=== PATIENT | female | born 1945 | race Caucasian/White ===

== ENCOUNTER → 2017-06-25 | Outpatient (CLI) | payer OTHER ==
[~2017-06-25] MED LIST: AMARYL4 MG PO; APAP500; ASPIRIN325 PO; ATORVASTATIN CA40 MG PO; ATORVASTATIN CA80 MG PO; AZITHROMYCIN 2250 MG PO; BENZONATATE200 MG PO; CEFDINIR300 MG PO; CIPROFLOXIN HC2.5 M1 OPHTHALMIC; CRESTOR40 MG PO; CYMBALTA20 MG PO; DEXAMETHASONE 0.5 M1 OPHTHALMIC; FISH OIL 1,2001 EAC3 PO; GABAPENTIN 100100 MG PO; GLUCOPHAGE1000 MG PO; HYDROCODON-ACE1 EAC7 PO; HYDROCODONE-AP1 EAC6 PO; IBUPROFEN 800800 M1 PO; JANUVIA50 MG PO; LIDOCAINE1 EACH TRANSDERM; LIPITOR80 MG PO; LOSARTAN-HCTZ1 EAC1 PO; LUBRICANT EYE D15 ML OPHTHALMIC; MAGOX 400400 MG PO; MEDROL4 MG PO; MOBIC7.5 M1 PO; MUCINEX600 MG PO; NEXIUM40 MG PO; PRILOSEC 10MG C10 M1 PO; SYNTHROID125 MC1 PO; TRAMADOL 50 MG50 MG PO; VENTOLIN HFA INH8 GM INH; VITAMIN E400 UNI6 PO; VITAMIN E400 UNIT PO; ZOFRAN4 MG PO; ZPAK PO; [UNRECOGNIZED DRUG - OTHER] OPHTHALMIC
== END ==
LOC: M.RAD 11:26
DX: R06.00 Dyspnea, unspecified (principal); R05 Cough

== ENCOUNTER 2018-01-25 22:37 | Observation (INO) | payer OTHER ==
[~2018-01-25] VITALS: Ht 162.6 cm; Wt 75.3 kg
[~2018-01-25 22:37] MED LIST changes: -ATORVASTATIN CA80 MG PO; -AZITHROMYCIN 2250 MG PO; -CEFDINIR300 MG PO; -MUCINEX600 MG PO; -VENTOLIN HFA INH8 GM INH
[2018-01-25 22:43] VITALS: BP 112/58
[2018-01-25] MEDS ORDERED: ATORVASTATIN CA80 MG PO (22:51)
[2018-01-25 23:10] LABS: HEMATOCRIT 37.3 % (37.0-47.0); HEMOGLOBIN 12.2 gm/dL (12.0-15.0); MCH 31.9 pg (26.0-34.0); MCHC 32.6 g/dL (28.0-37.0); MCV 97.7 fL (80.0-100.0); NUCLEATED RBCS 0 /100WBC; PLATELET COUNT* 299 thou/uL (150-400); RBC 3.81 mil/uL (4.20-5.00); RDW-CV 14.6 % (10.5-14.5); WBC 22.1 thou/uL (4.0-11.0)
[2018-01-25 23:21] LABS: ANION GAP 12 mmol/L (7-16); BUN 29 mg/dL (7-18); CALCIUM 9.8 mg/dL (8.5-10.1); CHLORIDE 97 mmol/L (98-107); CO2 23 mmol/L (21-32); CREATININE 1.3 mg/dL (0.6-1.3); GLUCOSE 353 mg/dL (70-99); POTASSIUM 3.9 mmol/L (3.5-5.1); SODIUM 132 mmol/L (136-145)
[2018-01-25 23:24] LABS: INR 1.1; PROTIME 11.1 Seconds (9.20-11.50)
[2018-01-25 23:32] LABS: ALBUMIN 3.3 g/dL (3.4-5.0); ALKALINE PHOSPHATASE 79 U/L (46-116); NT-PRO BRAIN NAT PEPTIDE 186 pg/mL (<300); SGOT 22 U/L (15-37); SGPT 23 U/L (30-65); TOTAL BILIRUBIN 0.3 mg/dL (<0.1-1.0); TOTAL PROTEIN 7.5 g/dL (6.4-8.2); TROPONIN-I LEVEL <0.06 ng/mL (<0.06)
[2018-01-25 23:57] LABS: BE -3.7 mmol/L (-2 to +3); HCO3 21.5 mmol/L (22.0-26.0); PCO2 39.8 mmHg (35.0-45.0); PO2 96.5 mmHg (75.0-100.0); pH 7.351 (7.340-7.450)
[2018-01-26 00:41] LABS: ABSOLUTE EOSINOPHILS 0.4 thou/uL (0.0-0.7); ABSOLUTE LYMPHOCYTES 2.2 thou/uL (0.8-5.3); ABSOLUTE MONOCYTES 1.8 thou/uL (0.0-1.2); ABSOLUTE NEUTROPHILS 17.7 thou/uL (1.6-8.1)
[2018-01-26 00:42] LABS: PLATELET ESTIMATE ADEQUATE; POLYCHROMASIA 1+
[2018-01-26 03:30] VITALS: BP 120/74
[2018-01-26 04:00] VITALS: BP 126/77
[2018-01-26 05:18] LABS: URINE BILIRUBIN NEGATIVE (Negative); URINE BLOOD NEGATIVE (Negative); URINE CLARITY CLEAR; URINE COLOR YELLOW; URINE GLUCOSE-RANDOM NEGATIVE (Negative); URINE KETONES NEGATIVE (Negative); URINE LEUKOCYTES-REFLEX TRACE (Negative); URINE NITRITE-REFLEX NEGATIVE (Negative); URINE PROTEIN NEGATIVE (Negative); URINE SPECIFIC GRAVITY <= 1.005 (1.005-1.030); URINE UROBILINOGEN 0.2 E.U./dl (0.2-1.0)
[2018-01-26 05:28] LABS: SQUAMOUS 0-3 Few /LPF (0-3)
[2018-01-26 05:29] LABS: BACTERIA-REFLEX 1-9 Few /HPF (None Seen); CASTS None Seen /LPF (None Seen); CRYSTALS None Seen /LPF (None Seen); MUCUS 0-3 Light strn/LPF (None Seen); URINE WBC-REFLEX 0-5 Rare /HPF (0-5)
[2018-01-26 05:30] LABS: URINE RBC 0-2 Rare /HPF (0-2)
[2018-01-26 07:49] LABS: CALCIUM 8.6 mg/dL (8.5-10.1); CREATININE 1.1 mg/dL (0.6-1.3); MAGNESIUM 1.1 mg/dL (1.8-2.4); POTASSIUM 4.1 mmol/L (3.5-5.1)
[2018-01-26] MEDS ORDERED: MUCINEX600 MG PO (07:49)
[2018-01-26] MEDS ORDERED: AZITHROMYCIN 2250 MG PO (07:49)
[2018-01-26] MEDS ORDERED: CEFDINIR300 MG PO (07:49)
[2018-01-26] MEDS ORDERED: VENTOLIN HFA INH8 GM INH (07:49)
[2018-01-26 07:56] VITALS: BP 130/75
[2018-01-26] MEDS ORDERED: ASPIRIN325 PO (10:51)
[2018-01-26 11:08] VITALS: BP 130/75
--- NOTE | 2018-01-26 18:13 | EKG ---
[place] [address] ELECTROCARDIOGRAM REPORT Name: SHIRA CARTER Room: [address]#: [id number] Admission: 01/26/18 Attend Phys: Emma Guallpa MD Discharge: 01/26/18 Date of : 41 Report #: [id number] THIS REPORT FOR: //name// [facility] ED Test Date: 2018-01-25 Test Time: 23:02:37 Pat Name: SHIRA CARTER Department: Room: [facility] Gender: F Scanning Clerk: Livan BA : 1945 Requested By: Ethel Rhoades Order Number: [id number] MD: Jim Travis Measurements Intervals [place] Rate: 118 P: 26 MS: 167 QRS: 6 QRSD: 102 T: 52 QT: 323 QTc: 453 Interpretive Statements Sinus tachycardia Consider anterior infarct Compared to ECG 02/17/2015 15:41:27 Myocardial infarct finding now present Sinus rhythm no longer present Left ventricular hypertrophy no longer present ST (T wave) deviation no longer present Electronically Signed On 01-26-2018 18:13:29 CDT by Jim Travis [email or web address] <ELECTRONICALLY SIGNED> By: Jim Travis MD, FACC 01/26/18 1813 01 01 Jim Travis MD, FACC /EPI
--- NOTE | 2018-01-27 11:23 | CON ---
[address] [address] CONSULTATION Name: SHIRA CARTER Room: [address] Molly Santoro#: [id number] Admission: 01/26/18 Attend Phys: Emma Guallpa MD Discharge: 01/26/18 Date of : 41 Report #: [id number] THIS REPORT FOR: //name// CC: Master Dodge DO DATE OF SERVICE: 01/26/2018 REQUESTING PHYSICIAN: Master Starkey MD. REASON FOR CONSULTATION: Cough, shortness of breath, pulmonary fibrosis. DISCUSSION: The patient is a very pleasant 72-year-old woman who has a history of underlying interstitial fibrosis. I do follow her in the office. She is not on any regular medications for this. She intermittently will have a cough. Besides her fibrosis, she has known severe reflux and LPR. When she does catch a cold or develop bronchitis, she will have a severe cough. She typically has been able to report this in the past if she uses some zinc supplements. However, recently, she did develop a "cold" and developed some congestion. Her symptoms persisted. She did see the nurse practitioner in Dr. Dodge's office. Was started on antibiotics as well as a Medrol pack. She had such a severe coughing paroxysm yesterday evening, that her friend brought her to the Emergency Room. When she was evaluated there, she was started on oxygen. Chest x-ray revealed fibrotic changes. However, they also did not do a comparison with her prior studies here. Was also noted to have mild elevation in her lactic acid levels. No chest pain. She is not aware of any fevers at home. She was admitted. Was started on antibiotics. A CT scan has been requested. The time I saw her this morning, she was feeling quite good. In fact, she is asking to be discharged home. She was taken off oxygen while I was seeing her and her O2 saturations were in the mid 90s. She is a former smoker, quitting back in 2004. She has approximate 97-binm-etds smoking history. As noted, I do see her in the office periodically with her last visit back in 09/2017. She is not on any regular treatment for her fibrosis. Her imaging studies, spirometry/PFTs have been stable. Had also offered to refer her for another opinion at [facility] in the past, but she had declined. She is not on any oxygen at home. Typically has been doing well without any issues with shortness of breath. Typically, she does not have any cough. Her last spirometry was 2015. At that time, her FEV1 was 1.72, which was 80% [place] [address] CONSULTATION Name: SHIRA CARTER Carleen Room: [address] Molly Santoro#: [id number] Admission: 01/26/18 Attend Phys: Emma Guallpa MD Discharge: 01/26/18 Date of : 41 Report #: [id number] predicted. Her FVC was 2 liters, which was 71% of predicted. Those findings were stable to actually improve relative to prior PFTs done on her in the past. PAST MEDICAL HISTORY: Besides the interstitial fibrosis is remarkable for diabetes mellitus type 2, coronary artery disease, has had stents placed in the past. She does see Dr. Eva Edmondson about once a year. Things have been stable in that regard. She has severe GERD as noted. She has had her upper airway evaluated by ENT in the past. Also, dyslipidemia, obesity, she has had back surgery ([facility] 2012), lumpectomy, bladder surgery, foot surgery in the past. SOCIAL HISTORY: She is a . Lost her not quite 2 years ago. Has a small dog at home. She is retired. REVIEW OF SYSTEMS: A 12-point ROS was done. Note positives above. Initially after her had , she did lose a substantial amount of weight. That has stabilized and she has actually gained 10 pounds compared to the visit with me last summer. As long as she takes her PPI, she typically does not have much in the way of indigestion or heartburn. Still occasionally has to use some Tums or other medications. Sometimes, the symptoms are worse when she is coughing more as well. No recent true vomiting, but did have some "dry heaves." Denies any diarrhea. She has not been around anyone who has been ill that she is aware of. She has had her flu shot. I believe she has had her pneumonia vaccines in the past as well. No issues with lower extremity edema. No palpitations. No chest pain. FAMILY HISTORY: Positive for heart disease. Negative for lung disease. PHYSICAL EXAMINATION: GENERAL: She is seen in a room. Was taken off the oxygen, O2 saturations in the mid 90s. She had no cough during my interview nor examination with her. She is alert, cooperative. She is in no acute distress. Able to speak in full sentences. HEENT: Head is normocephalic. Sclerae nonicteric. Mucous membranes look moist. NECK: Negative for adenopathy. No JVD is noted. HEART: Regular rate. No murmur or gallop is heard. LUNGS: Reveal bibasilar crackles. No wheezing. No dullness to percussion. No E to A changes. No CVA tenderness. She has no clubbing. ABDOMEN: Soft. LOWER EXTREMITIES: Negative for any significant edema. NEUROLOGIC: She is alert and oriented x 3. LABORATORY AND X-RAY FINDINGS: Chest x-ray shows heart size to be normal. Prominence of interstitial markings are noted. When compared to a study done this past spring, it looks similar to actually slightly improved. She has had a CT chest done without contrast just after I did see her this morning. It shows [address], [place] [address] CONSULTATION Name: SANTOSSHIRA TREJO Room: [address] M.R.#: [id number] Admission: 01/26/18 Attend Phys: Emma Guallpa MD Discharge: 01/26/18 Date of : 41 Report #: [id number] fibrotic changes. There are no masses. No pleural effusions. Sodium was 135, BUN 24, creatinine of 1.1. Did have initial lactate level of 5.3, dropped to 4.7. White count was 22,100, hemoglobin 12.2, hematocrit 37.3, platelets 299,000. UA was generally unremarkable. Arterial blood gases done on 3 liters, she had a pH of 7.35, pCO2 of 40, pO2 of 97, bicarbonate of 22 with a saturation of 96%. Blood cultures were sent, those results are negative to date. IMPRESSION: 1. Upper respiratory infection/lower respiratory tract infection. No confluent infiltrates noted. Clinically, has improved. 2. Severe cough. This has been longstanding intermittent issue for her. She typically will have increased cough with an infection. May be exacerbated by her gastroesophageal reflux disease as well. 3. Pulmonary fibrosis. Findings on her chest x-ray appears stable. Since her prior CT chest have not been done here, it is difficult to know if there has been additional progression based on her current CT. 4. Coronary artery disease. Status post stent placement. 5. Leukocytosis, may be from steroids given her recently. RECOMMENDATIONS: 1. She actually looks quite good. I am comfortable with her being discharged home today. She does have access to a nebulizer at home. She notes in the past, she actually had increased cough with that. However, she did not try at this time when she had her increased cough. It has worked well for her here in the hospital, since it is same medication, I suggested she resume use of that at home. 2. Continue with her steroid taper and complete a course of antibiotics. 3. We will have my office make arrangements for her to have follow up PFTs done a little bit later this year. We would like her over this acute event first. <ELECTRONICALLY SIGNED> By: Modesta Henriquez MD 01/27/18 1123 1018 20Modesta Henriquez MD /nt
== END 2018-01-26 12:10 | disposition home or self-care (01) ==
LOC: M.ERS 22:37 → M.TBA-ER 01-26 01:58 → M.ICU 01-26 01:58
PROVIDERS: Emergency Medicine; Internal Medicine; ADMIT Internal Medicine
DX: J96.01 Acute respiratory failure with hypoxia (principal); J84.9 Interstitial pulmonary disease, unspecified; E87.2 Acidosis; F15.90 Other stimulant use, unspecified, uncomplicated; E09.65 Drug or chemical induced diabetes mellitus with hyperglycemia; T38.0X5A Adverse effect of glucocorticoids and synthetic analogues, initial encounter; J20.9 Acute bronchitis, unspecified; J06.9 Acute upper respiratory infection, unspecified; R65.10 Systemic inflammatory response syndrome (SIRS) of non-infectious origin without acute organ dysfunction; I25.10 Atherosclerotic heart disease of native coronary artery without angina pectoris; I25.2 Old myocardial infarction; F32.9 Major depressive disorder, single episode, unspecified; K21.9 Gastro-esophageal reflux disease without esophagitis; J84.10 Pulmonary fibrosis, unspecified; E78.5 Hyperlipidemia, unspecified; D72.829 Elevated white blood cell count, unspecified; F17.210 Nicotine dependence, cigarettes, uncomplicated; Z79.82 Long term (current) use of aspirin; Z95.5 Presence of coronary angioplasty implant and graft; Z98.890 Other specified postprocedural states; Y92.89 Other specified places as the place of occurrence of the external cause; Z79.899 Other long term (current) drug therapy

== ENCOUNTER → 2018-03-11 | Outpatient (CLI) | payer OTHER ==
[~2018-03-11] MED LIST changes: +ATORVASTATIN CA80 MG PO; +AZITHROMYCIN 2250 MG PO; +CEFDINIR300 MG PO; +MUCINEX600 MG PO; +VENTOLIN HFA INH8 GM INH
== END ==
LOC: M.RAD 10:20
DX: Z12.31 Encounter for screening mammogram for malignant neoplasm of breast (principal)

== ENCOUNTER → 2018-08-30 | Outpatient (CLI) | payer OTHER | LOC: M.RAD 14:23 | DX: M25.552 Pain in left hip (principal) ==

== ENCOUNTER → 2019-03-07 | Outpatient (CLI) | payer OTHER | LOC: M.RAD 12:55 | DX: Z12.31 Encounter for screening mammogram for malignant neoplasm of breast (principal); R91.8 Other nonspecific abnormal finding of lung field; R09.89 Other specified symptoms and signs involving the circulatory and respiratory systems; I51.7 Cardiomegaly ==

== ENCOUNTER → 2019-06-08 | Outpatient (CLI) | payer OTHER | LOC: M.CT 13:22 | DX: J84.10 Pulmonary fibrosis, unspecified (principal); R91.8 Other nonspecific abnormal finding of lung field; J47.9 Bronchiectasis, uncomplicated ==

== ENCOUNTER 2019-08-29 11:40 | Inpatient (IN) | payer OTHER ==
[~2019-08-29] VITALS: Ht 162.6 cm; Wt 67.8 kg
[2019-08-29 11:46] VITALS: BP 151/95
[2019-08-29 12:11] LABS: ABSOLUTE BASOPHILS 0.1 thou/uL (0.0-0.2); ABSOLUTE EOSINOPHILS 0.9 thou/uL (0.0-0.7); ABSOLUTE LYMPHOCYTES 1.5 thou/uL (0.8-5.3); ABSOLUTE MONOCYTES 0.9 thou/uL (0.0-1.2); ABSOLUTE NEUTROPHILS 7.5 thou/uL (1.6-8.1); BASOPHILS 0.8 %; EOSINOPHILS 8.4 %; HEMATOCRIT 36.3 % (37.0-47.0); HEMOGLOBIN 12.1 gm/dL (12.0-15.0); LYMPHOCYTES 14.1 %; MCH 31.4 pg (26.0-34.0); MCHC 33.4 g/dL (28.0-37.0); MONOCYTES 8.1 %; MPV 7.9 fl. (7.2-11.1); NUCLEATED RBCS 0 /100WBC; PLATELET COUNT* 293 thou/uL (150-400); POLYS 68.6 %; RBC 3.87 mil/uL (4.20-5.00); RDW-CV 14.9 % (10.5-14.5)
[2019-08-29 12:32] LABS: BE 0.6 mmol/L (-2 to +3); PCO2 42.6 mmHg (35.0-45.0); PO2 78.8 mmHg (75.0-100.0); pH 7.397 (7.340-7.450)
[2019-08-29 12:41] LABS: CALCIUM 9.5 mg/dL (8.5-10.1); CREATININE 0.9 mg/dL (0.6-1.3); POTASSIUM 4.2 mmol/L (3.5-5.1)
[2019-08-29 12:46] LABS: ALBUMIN 3.8 g/dL (3.4-5.0); TOTAL BILIRUBIN 0.5 mg/dL (<0.1-1.0); TOTAL PROTEIN 8.5 g/dL (6.4-8.2)
[2019-08-29 13:03] LABS: APTT 27.8 Seconds (25.0-31.3); PROTIME 10.7 Seconds (9.20-11.50)
[2019-08-29 18:19] VITALS: BP 147/95
[2019-08-29 20:00] VITALS: BP 132/80
[2019-08-30 00:02] VITALS: BP 140/74
[2019-08-30 04:41] VITALS: BP 134/82
[2019-08-30 06:10] LABS: HEMATOCRIT 34.3 % (37.0-47.0); HEMOGLOBIN 11.7 gm/dL (12.0-15.0); MCHC 34.1 g/dL (28.0-37.0); MCV 93.9 fL (80.0-100.0); MPV 7.9 fl. (7.2-11.1); RBC 3.65 mil/uL (4.20-5.00); RDW-CV 14.7 % (10.5-14.5); WBC 8.7 thou/uL (4.0-11.0)
[2019-08-30 06:20] LABS: CALCIUM 9.3 mg/dL (8.5-10.1); MAGNESIUM 1.4 mg/dL (1.8-2.4); POTASSIUM 4.4 mmol/L (3.5-5.1)
[2019-08-30 07:53] VITALS: BP 126/87
[2019-08-30 11:30] VITALS: BP 123/74
--- NOTE | 2019-08-30 13:28 | EKG ---
[place] [address] ELECTROCARDIOGRAM REPORT Name: SHIRA CARTER Room: [address] ADM IN [facility]#: [id number] Admission: 08/29/19 Attend Phys: Master Starkey, Discharge: Date of : 41 Date of Service: 08/29/19 1210 Report #: [id number] THIS REPORT FOR: //name// [facility] ED Test Date: 2019-08-29 Test Time: 12:10:25 Pat Name: SHIRA CARTER Department: Room: [facility] Gender: F Cop: MS : 1945 Requested By: Huang Kirby Order Number: [id number] MD: David Cross Measurements Intervals [place] Rate: 91 P: 19 RI: 166 QRS: -63 QRSD: 80 T: 12 QT: 443 QTc: 546 Interpretive Statements Sinus rhythm left anterior fasicular block Probable left atrial enlargement Prolonged QT interval Baseline wander in lead(s) I,II,aVR,V2 Compared to ECG 01/25/2018 23:02:37 Prolonged QT interval now present Sinus tachycardia no longer present Myocardial infarct finding still present Electronically Signed On 08-30-2019 13:26:15 CDT by David Cross [email or web address] <ELECTRONICALLY SIGNED> By: David Cross MD, [facility] 08/30/19 1326 1210 1210 aDvid Cross MD, [facility] /EPI
[2019-08-30 16:00] VITALS: BP 123/81
--- NOTE | 2019-08-30 16:03 | 2DMMODE ---
[place] [address] 2 D/M-MODE ECHOCARDIOGRAM Name: SHIRA CARTER Carleen Room: [address] IN [facility]#: [id number] Admission: 08/29/19 Attend Phys: Master Starkey, Discharge: Date of : 41 Date of Service: 08/30/19 1601 Report #: [id number] THIS REPORT FOR: cc: Yonny Dodge Russell J. DO Liston, Michael J. MD [facility] ~ APPROVED REPORT Study performed: 08/30/2019 13:32:15 EXAM: Comprehensive 2D, Doppler, and color-flow Echocardiogram Patient Location: In-Patient BSA: 1.70 HR: 70 bpm BP: 126/87 mmHg Other Information Study Quality: Fair Indications COPD Dyspnea 2D Dimensions IVSd: 11.44 (7-11mm) LVOT Diam: 21.18 (18-24mm) LVDd: 42.30 mm PWd: 9.75 (7-11mm) Ascending Ao: 28.42 (22-36mm) LVDs: 30.27 (25-40mm) Aortic Root: 28.33 mm Volumes Left Atrial Volume (Systole) LA ESV Index: 15.10 mL/m2 Aortic Valve AoV Peak Duncan.: 1.44 m/s AO Peak Gr.: 8.32 mmHg LVOT Max P.57 mmHg AO Mean Gr.: 4.77 mmHg LVOT Mean P.93 mmHg LVOT Max V: 0.94 m/s AO V2 VTI: 22.81 cm LVOT Mean V: 0.65 m/s LILLIAN (VTI): 2.54 cm2 LVOT V1 VTI: 16.41 [place] [address] 2 D/M-MODE ECHOCARDIOGRAM Name: SHIRA CARTER Room: [address] IN [facility]#: [id number] Admission: 08/29/19 Attend Phys: Master Starkey, Discharge: Date of : 41 Date of Service: 08/30/19 1601 Report #: [id number] Mean Gr.: 3.79 mmHg MV Decel. Time: 118.56 ms MV PHT: 34.38 ms MVA (PHT): 6.40 cm2 TDI Medial E' Duncan.: 0.06 m/s Lateral E' Duncan.: 0.06 m/s Pulmonary Valve PV Peak Duncan.: 0.90 m/s PV Peak Gr.: 3.26 mmHg Tricuspid Valve RAP Estimate: 5.00 mmHg TR Peak Gr.: 14.73 mmHg RVSP: 19.73 mmHg PA Pressure: 19.73 mmHg Left Ventricle The left ventricle is normal size. There is normal LV segmental wall motion. There is normal left ventricular wall thickness. The left ventricular systolic function is normal. LVEF is 55-60%. Transmitral Doppler flow pattern suggests impaired LV relaxation. Right Ventricle Right ventricle is moderately dilated. The right ventricular systolic function is normal. Atria The left atrium size is normal. The right atrium size is normal. Aortic Valve The Aortic valve is sclerotic. No aortic regurgitation is present. There is no aortic valvular stenosis. Mitral Valve Mitral valve leaflets are mildly thickened. There is no mitral valve regurgitation noted. No evidence of mitral valve stenosis. Tricuspid Valve The tricuspid valve is normal in structure. Trace tricuspid regurgitation. No apparent pulmonary hypertension. Pulmonic Valve The pulmonary valve is normal in structure. There is no pulmonic [place] [address] 2 D/M-MODE ECHOCARDIOGRAM Name: SHIRA CARTER Carleen Room: [address]#: [id number] Admission: 08/29/19 Attend Phys: Master Starkey, Discharge: Date of : 41 Date of Service: 08/30/19 1601 Report #: [id number] Great Vessels The aortic root is normal in size. IVC is normal in size and collapses >50% with inspiration. Pericardium There is no pericardial effusion. <Conclusion> The left ventricle is normal size. There is normal left ventricular wall thickness. The left ventricular systolic function is normal. LVEF is 55-60%. Transmitral Doppler flow pattern suggests impaired LV relaxation. Right ventricle is moderately dilated. The Aortic valve is sclerotic. There is no aortic valvular stenosis. Mitral valve leaflets are mildly thickened. No evidence of mitral valve stenosis. Trace tricuspid regurgitation. No apparent pulmonary hypertension. IVC is normal in size and collapses >50% with inspiration. <ELECTRONICALLY SIGNED> By: Jim Travis MD, FACC 08/30/19 1601 1601 160 Jim Travis MD, FACC /INF
[2019-08-30 20:00] VITALS: BP 127/71
[2019-08-31] VITALS: BP 122/83
[2019-08-31 04:00] VITALS: BP 118/71; BP 127/51
[2019-08-31 12:27] VITALS: BP 80/59
[2019-08-31 12:40] VITALS: BP 120/72
[2019-08-31 21:00] VITALS: BP 133/64
[2019-09-01 08:00] VITALS: BP 120/90
[2019-09-01 09:09] LABS: ANTI-DNA SCREEN 1 IU/mL (0-9); ANTI-RNP <0.2 AI (0.0-0.9)
[2019-09-01] MEDS ORDERED: PREDNISONE 10 M10 M1 PO (12:04)
[2019-09-01 12:05] VITALS: BP 120/90
--- NOTE | 2019-09-05 17:32 | CON ---
[address] [address] CONSULTATION Name: RAULSHIRA Carleen Room: [address] IN .R.#: [id number] Admission: 08/29/19 Attend Phys: Master Starkey MD Discharge: 09/01/19 Date of : 41 Report #: [id number] THIS REPORT FOR: //name// cc: Yonny Dodge Russell J. DO ~ THIS REPORT FOR: //name// CC: Master Dodge DATE OF SERVICE: 08/30/2019 CONSULT REQUESTED BY: Master Starkey MD INDICATION FOR CONSULTATION: Pulmonary fibrosis. HISTORY OF PRESENT ILLNESS: A 74-year-old female with past medical history includes history of pulmonary fibrosis. By clinical history, the patient also had COPD; however, I do not have any previous pulmonary function test to substantiate this. The patient is on oxygen while asleep. She has previously had cardiac stents placed as well and has gastroesophageal reflux. The patient now reports that overall there has been a decline in her health over the last few months. She says that for the last 2-3 months, she has noticed that she has been coughing more. She, however, does not report any recent change in this hospital. She says that over the last couple of months, there has been a progressive deterioration in her shortness of breath as well. She states that she came to the Emergency Room yesterday due to an increase in shortness of breath. With the exception of having an increase in shortness of breath, the patient does not describe any other new respiratory complaints at this time. She has no sputum production. There is no chest pain. She has had occasional nasal discharge, this is clear and not recently changed. There is no fever. There is no sore throat. She has not had any joint pains or aches. Since admission yesterday, the patient has been treated with Solu-Medrol. She also has received broad-spectrum antibiotics. The patient reports improvement in shortness of breath since yesterday. At her baseline, the patient is on oxygen while asleep. She did require oxygen while awake as well on admission. O2 saturations as low as 74% on room air initially recorded. The patient at this time is reported to be maintaining her O2 saturation up to 100% at rest with room air while awake. The patient, however, is reported to be quickly desaturating with minor exertion or when talking and therefore still remains on oxygen at 3 liters while awake. The patient in the past has had fairly significant heartburn, which is under control at this time. She has occasional joint pains, [place] [address] CONSULTATION Name: SHIRA CARTER Room: [address] IN .R.#: [id number] Admission: 08/29/19 Attend Phys: Master Starkey MD Discharge: 09/01/19 Date of : 41 Report #: [id number] She answers to the negative for 12 questions for review of systems except as mentioned above. PAST MEDICAL HISTORY: Interstitial lung disease/pulmonary fibrosis which is verified by CAT scans in the past. I do not have any additional workup available. Chronic hypoxemic respiratory failure secondary to pulmonary fibrosis. The patient is on 2 liters oxygen while asleep. She is previously not known to be on oxygen during the day. COPD by clinical history, I do not have previous PFTs available. Coronary artery disease, the patient has had stents placed in the past, severe gastroesophageal reflux disease. In the past at one point, the patient had obesity, hyperlipidemia, back surgery, lumpectomy, bladder surgery, foot surgery. SOCIAL HISTORY: There is as an extensive history of smoking up to 2 packs a day for several decades, discontinued in 2004 or 2005. No known history of heavy alcohol use or illegal drug use. CURRENT MEDICATIONS: List in [facility] reviewed. HOME MEDICATIONS: List also in [facility] reviewed. FAMILY HISTORY: Heart disease. PHYSICAL EXAMINATION: GENERAL: Alert, awake and oriented, does not appear to be in any distress at this time. VITAL SIGNS: Pulse of 96 and a blood pressure 123/74. She is afebrile with a temperature of 36.7 and has remained afebrile since admission. Her respiratory rate is around 16-17. She does not appear to be in any distress. The patient is maintaining O2 saturations up to 100% on room air at rest, however, she remains on 3.5 liters oxygen at this time on account of the fact that she is desaturating on room air on minor exertion and also on talking. Her body mass index is now 24.8. HEENT: Head is normocephalic and atraumatic. Pupils are equal and reactive. There is no throat erythema. There is no thrush in her throat. NECK: Does not show raised JVP, asymmetry, mass or lymph nodes. CHEST: Symmetrical expansion on inspection and palpation. On auscultation, breath sounds are bilaterally equal. There are occasional rales at the right lung base. I do not hear any other added sounds. HEART: Regular. There is no murmur. ABDOMEN: Soft and nontender. EXTREMITIES: Lower extremities show no edema, no calf tenderness. SKIN: Dry and intact. NEUROLOGICAL: She moves all extremities bilaterally equally and spontaneously with [place] [address] CONSULTATION Name: RAULSHIRA Carleen Room: [address] IN .R.#: [id number] Admission: 08/29/19 Attend Phys: Master Starkey MD Discharge: 09/01/19 Date of : 41 Report #: [id number] LABORATORY DATA: The patient's lab work including a CBC repeated twice as well as chemistries in [facility] and these are reviewed. Coagulation studies also in [facility] reviewed. Arterial blood gas in [facility] and it is also reviewed. ASSESSMENT AND PLAN: 1. Rtowm-ip-biokswk hypoxemic respiratory failure. The patient needs oxygen while asleep. There has been a gradual deterioration in her respiratory status, so only significant new complaint is an increase in shortness of breath. It is possible that this is acute recognition of a chronically deteriorating issue. The patient would need reevaluation of her long-term oxygen needs prior to discharge. 2. Interstitial lung disease/pulmonary fibrosis. This is documented by her CT previously. I just had a CT repeated now as well. On my review, there are no new findings. However, the radiologist's detailed review is pending. There is honeycombing and at first glance, it appears to me that the pattern resembles the usual interstitial pneumonitis. However, the etiology of the patient's interstitial lung disease does need to be evaluated further. Considering that she has also had severe gastroesophageal reflux disease, I have sent off connective tissue markers and I feel that an underlying connective tissue disease leading to this picture needs to be ruled out. The patient may also benefit from a pulmonary function test and if no underlying connective tissue disease is recognized then the primary therapy for this patient, should she be interested, may be the fibroblastic inhibitor as an outpatient. 3. Chronic obstructive pulmonary disease exacerbation. It does appear to me that the patient has underlying chronic obstructive pulmonary disease. Obviously, this needs to be verified by pulmonary function test. She received 2 doses of Solu-Medrol and is now on prednisone as well as p.r.n. nebulized bronchodilators. I ordered an additional dose of Solu-Medrol for this evening. I also changed the nebulized bronchodilators to scheduled. The patient states that in the past, she has had problems with various nebulizers as well as inhalers and therefore she has not used any that she was prescribed regularly. We will see how she does with the nebulizers ordered now again. 4. Coronary artery disease. I have ordered an echocardiogram, primarily to look at the right heart pressures. The report is in [facility] and reviewed the same. The right heart pressures are reported to be normal with a left ventricular ejection fraction of 55%-60%. 5. Severe gastroesophageal reflux disease. The patient remains on a proton pump inhibitor b.i.d. 6. Acute bronchitis/possibility of pneumonia. As mentioned above, I do not see any definite change in the patient's CT compared with the previous CT; however, evaluation is limited due to the presence of significant chronic changes. Pending further review, I feel that it is reasonable for now to continue with broad-spectrum antibiotics. [address] [address] CONSULTATION Name: SHIRA CARTER Room: [address] IN M.R.#: [id number] Admission: 08/29/19 Attend Phys: Master Starkey MD Discharge: 09/01/19 Date of : 41 Report #: [id number] Thanks for this consultation. <ELECTRONICALLY SIGNED> By: Tarun Schmitz MD 09/05/19 1732 1732 [id number] Schmitz MD /nt
== END 2019-09-01 13:22 | disposition home or self-care (01) | DRG 871 ==
LOC: M.ERS 11:40 → M.TBA-ER 14:35 → M.2W 14:35
PROVIDERS: Family Medicine; Internal Medicine Critical Care Medicine; ADMIT Internal Medicine; ATTEND Internal Medicine
DX: A41.9 Sepsis, unspecified organism (principal); J18.9 Pneumonia, unspecified organism; J96.21 Acute and chronic respiratory failure with hypoxia; J96.22 Acute and chronic respiratory failure with hypercapnia; J44.1 Chronic obstructive pulmonary disease with (acute) exacerbation; J44.0 Chronic obstructive pulmonary disease with (acute) lower respiratory infection; I25.10 Atherosclerotic heart disease of native coronary artery without angina pectoris; J20.9 Acute bronchitis, unspecified; K21.9 Gastro-esophageal reflux disease without esophagitis; F32.9 Major depressive disorder, single episode, unspecified; J84.10 Pulmonary fibrosis, unspecified; Z68.25 Body mass index [BMI] 25.0-25.9, adult; E78.5 Hyperlipidemia, unspecified; E66.9 Obesity, unspecified; E11.65 Type 2 diabetes mellitus with hyperglycemia; G89.29 Other chronic pain; Z95.5 Presence of coronary angioplasty implant and graft; I25.2 Old myocardial infarction; Z86.711 Personal history of pulmonary embolism; Z87.891 Personal history of nicotine dependence; Z82.49 Family history of ischemic heart disease and other diseases of the circulatory system; Z99.81 Dependence on supplemental oxygen

== ENCOUNTER 2019-09-22 12:12 | Observation (INO) | payer OTHER ==
[~2019-09-22] VITALS: Ht 162.6 cm; Wt 67.6 kg
[~2019-09-22 12:12] MED LIST changes: +PREDNISONE 10 M10 M1 PO
[2019-09-22 12:15] VITALS: BP 103/56
[2019-09-22 13:08] LABS: ABSOLUTE EOSINOPHILS 0.2 thou/uL (0.0-0.7); ABSOLUTE LYMPHOCYTES 1.2 thou/uL (0.8-5.3); ABSOLUTE MONOCYTES 0.7 thou/uL (0.0-1.2); ABSOLUTE NEUTROPHILS 4.7 thou/uL (1.6-8.1); BASOPHILS 0.5 %; EOSINOPHILS 3.2 %; HEMATOCRIT 33.5 % (37.0-47.0); HEMOGLOBIN 11.3 gm/dL (12.0-15.0); LYMPHOCYTES 17.2 %; MCH 31.6 pg (26.0-34.0); MCHC 33.7 g/dL (28.0-37.0); MCV 93.9 fL (80.0-100.0); NUCLEATED RBCS 0 /100WBC; PLATELET COUNT* 259 thou/uL (150-400); POLYS 69.1 %; RBC 3.57 mil/uL (4.20-5.00); RDW-CV 15.1 % (10.5-14.5); WBC 6.9 thou/uL (4.0-11.0)
[2019-09-22 13:47] LABS: CALCIUM 8.9 mg/dL (8.5-10.1); CREATININE 1.1 mg/dL (0.6-1.3); POTASSIUM 4.1 mmol/L (3.5-5.1)
[2019-09-22 13:58] LABS: TOTAL BILIRUBIN 0.3 mg/dL (<0.1-1.0)
[2019-09-22 16:16] VITALS: BP 104/64
[2019-09-22 17:02] VITALS: BP 110/68
--- NOTE | 2019-09-22 18:20 | EKG ---
[place] [address] ELECTROCARDIOGRAM REPORT Name: SHIRA CARTER Room: [address]#: [id number] Admission: 09/22/19 Attend Phys: Master Starkey, Discharge: Date of : 41 Date of Service: 09/22/19 1314 Report #: [id number] THIS REPORT FOR: //name// 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 : 1945 Requested By: Tristan Delgado Order Number: [id number] MD: Jim Travis Measurements Intervals [place] Rate: 85 P: 40 MN: 166 QRS: 17 QRSD: 102 T: 33 QT: 372 QTc: 443 Interpretive Statements Sinus rhythm Low voltage, precordial leads Compared to ECG 08/29/2019 12:10:25 Low QRS voltage now present Prolonged QT interval no longer present Electronically Signed On 09-22-2019 18:19:40 CDT by Jim Travis [email or web address] <ELECTRONICALLY SIGNED> By: Jim Travis MD, FAC 09/22/19 1819 1314 1314 Jim Travis MD, [facility] /EPI
[2019-09-22 20:50] VITALS: BP 111/71
[2019-09-23 07:45] VITALS: BP 109/68
[2019-09-23] MEDS ORDERED: NEBULIZER MISCELL (09:05)
[2019-09-23] MEDS ORDERED: AZITHROMYCIN 2250 MG PO (09:05)
[2019-09-23] MEDS ORDERED: CEFDINIR300 MG PO (09:05)
[2019-09-23] MEDS ORDERED: PULMICORT0.5 MG/2 M INH (09:05)
[2019-09-23] MEDS ORDERED: IPRAT-ALBUT 0.5-3 ML INH (09:05)
[2019-09-23] MEDS ORDERED: PREDNISONE 10 M10 MG PO (09:06)
[2019-09-23 11:25] VITALS: BP 109/68
== END 2019-09-23 15:20 | disposition home health service (06) ==
LOC: M.ERS 12:12 → M.ORTHSURG 14:33 → M.TBA-ER 14:33 → M.ORTHSURG 16:49
PROVIDERS: Emergency Medicine Emergency Medical Services; ADMIT Internal Medicine; ATTEND Internal Medicine
DX: J96.21 Acute and chronic respiratory failure with hypoxia (principal); J44.1 Chronic obstructive pulmonary disease with (acute) exacerbation; J18.9 Pneumonia, unspecified organism; E11.9 Type 2 diabetes mellitus without complications; I25.10 Atherosclerotic heart disease of native coronary artery without angina pectoris; I25.2 Old myocardial infarction; K21.9 Gastro-esophageal reflux disease without esophagitis; G89.29 Other chronic pain; Z87.891 Personal history of nicotine dependence; F32.9 Major depressive disorder, single episode, unspecified; J84.10 Pulmonary fibrosis, unspecified

== ENCOUNTER 2019-12-24 18:36 | Emergency (ER) | payer OTHER ==
[~2019-12-24] VITALS: Ht 162.6 cm; Wt 65.3 kg
[~2019-12-24 18:36] MED LIST changes: +IPRAT-ALBUT 0.5-3 ML INH; +NEBULIZER MISCELL; +PREDNISONE 10 M10 MG PO; +PULMICORT0.5 MG/2 M INH
[2019-12-24 18:50] VITALS: BP 99/56
[2019-12-24] MEDS ORDERED: CHOLESTEROL MED (18:55)
[2019-12-24 19:55] LABS: ABSOLUTE BASOPHILS 0.1 thou/uL (0.0-0.2); ABSOLUTE EOSINOPHILS 0.6 thou/uL (0.0-0.7); ABSOLUTE LYMPHOCYTES 1.6 thou/uL (0.8-5.3); ABSOLUTE MONOCYTES 1.2 thou/uL (0.0-1.2); ABSOLUTE NEUTROPHILS 6.9 thou/uL (1.6-8.1); BASOPHILS 0.7 %; EOSINOPHILS 5.9 %; HEMATOCRIT 33.8 % (37.0-47.0); HEMOGLOBIN 11.3 gm/dL (12.0-15.0); LYMPHOCYTES 15.8 %; MCHC 33.5 g/dL (28.0-37.0); MCV 95.5 fL (80.0-100.0); MONOCYTES 11.1 %; MPV 7.7 fl. (7.2-11.1); NUCLEATED RBCS 0 /100WBC; PLATELET COUNT* 324 thou/uL (150-400); POLYS 66.5 %; RBC 3.54 mil/uL (4.20-5.00); RDW-CV 15.5 % (10.5-14.5); WBC 10.4 thou/uL (4.0-11.0)
[2019-12-24 20:02] LABS: CALCIUM 10.3 mg/dL (8.5-10.1); CREATININE 1.2 mg/dL (0.6-1.3); POTASSIUM 3.4 mmol/L (3.5-5.1)
[2019-12-24 20:03] LABS: PROTIME 10.5 Seconds (9.20-11.50)
== END 2019-12-24 21:31 | disposition home or self-care (01) ==
LOC: M.ERS 18:36
PROVIDERS: Personal Emergency Response Attendant
DX: R04.0 Epistaxis (principal); I25.10 Atherosclerotic heart disease of native coronary artery without angina pectoris; E11.9 Type 2 diabetes mellitus without complications; K21.9 Gastro-esophageal reflux disease without esophagitis; G89.29 Other chronic pain; Z95.5 Presence of coronary angioplasty implant and graft; Z88.8 Allergy status to other drugs, medicaments and biological substances

== ENCOUNTER 2020-01-02 09:05 | Inpatient (IN) | payer OTHER ==
[~2020-01-02] VITALS: Ht 162.6 cm; Wt 64.0 kg
--- NOTE | ~2020-01-02 | PROC ---
[address] [address] PROCEDURE REPORT Name: SHIRA CARTER Room: [address] IN M.R.#: [id number] Admission: 01/03/20 Attend Phys: Emma Guallpa MD Discharge: 01/05/20 Date of : 41 Report #: [id number] THIS REPORT FOR: //name// cc: Yonny Dodge Russell J. DO ~ THIS REPORT FOR: //name// For GI report, please see the Provation report in Per[employer] 7 content. By: [id number] Records Staff JESSI /LUIS FERNANDO
[~2020-01-02 09:05] MED LIST changes: +CHOLESTEROL MED
[2020-01-02 09:09] VITALS: BP 165/89
[2020-01-02] MEDS ORDERED: NEXIUM40 M2 PO (09:16)
[2020-01-02] MEDS ORDERED: LIPITOR80 MG PO (09:17)
[2020-01-02 09:46] LABS: ABSOLUTE BASOPHILS 0.1 thou/uL (0.0-0.2); ABSOLUTE EOSINOPHILS 0.6 thou/uL (0.0-0.7); ABSOLUTE LYMPHOCYTES 1.5 thou/uL (0.8-5.3); ABSOLUTE MONOCYTES 0.8 thou/uL (0.0-1.2); ABSOLUTE NEUTROPHILS 6.6 thou/uL (1.6-8.1); BASOPHILS 0.5 %; EOSINOPHILS 6.4 %; HEMATOCRIT 32.3 % (37.0-47.0); HEMOGLOBIN 10.8 gm/dL (12.0-15.0); LYMPHOCYTES 15.5 %; MCH 31.9 pg (26.0-34.0); MCHC 33.4 g/dL (28.0-37.0); MCV 95.7 fL (80.0-100.0); MONOCYTES 8.5 %; MPV 7.7 fl. (7.2-11.1); NUCLEATED RBCS 0 /100WBC; PLATELET COUNT* 302 thou/uL (150-400); POLYS 69.1 %; RBC 3.37 mil/uL (4.20-5.00); RDW-CV 15.4 % (10.5-14.5); WBC 9.6 thou/uL (4.0-11.0)
[2020-01-02 09:53] LABS: CALCIUM 10.7 mg/dL (8.5-10.1); CREATININE 1.2 mg/dL (0.6-1.3); POTASSIUM 3.8 mmol/L (3.5-5.1)
[2020-01-02 09:57] LABS: ALBUMIN 3.6 g/dL (3.4-5.0); TOTAL BILIRUBIN 0.3 mg/dL (<0.1-1.0); TOTAL PROTEIN 7.5 g/dL (6.4-8.2)
[2020-01-02 10:23] LABS: URINE BLOOD NEGATIVE (Negative); URINE CLARITY CLEAR; URINE COLOR YELLOW; URINE GLUCOSE-RANDOM NEGATIVE (Negative); URINE KETONES NEGATIVE (Negative); URINE LEUKOCYTES-REFLEX NEGATIVE (Negative); URINE NITRITE-REFLEX NEGATIVE (Negative); URINE PROTEIN NEGATIVE (Negative); URINE UROBILINOGEN 0.2 E.U./dl (0.2-1.0)
[2020-01-02 10:24] LABS: ICTOTEST (BILI CONFIRMATORY) Negative (Negative); URINE BILIRUBIN 1+ (Negative)
[2020-01-02 14:27] VITALS: BP 152/95
[2020-01-02 14:37] VITALS: BP 138/77
[2020-01-02] MEDS ORDERED: CHILDREN'S ASPI81 M1 PO (15:44)
[2020-01-02] MEDS ORDERED: NORCO 10-325 T1 EACH PO (18:25)
[2020-01-02 19:21] LABS: HEMATOCRIT 29.7 % (37.0-47.0); MCH 32.2 pg (26.0-34.0); MCHC 33.7 g/dL (28.0-37.0); MCV 95.5 fL (80.0-100.0); MPV 7.8 fl. (7.2-11.1); NUCLEATED RBCS 0 /100WBC; PLATELET COUNT* 288 thou/uL (150-400); RBC 3.11 mil/uL (4.20-5.00); RDW-CV 15.9 % (10.5-14.5); WBC 6.3 thou/uL (4.0-11.0)
[2020-01-02 19:40] VITALS: BP 128/74
[2020-01-02 19:43] LABS: ALBUMIN 3.3 g/dL (3.4-5.0); CALCIUM 9.4 mg/dL (8.5-10.1); CREATININE 1.3 mg/dL (0.6-1.3); POTASSIUM 4.3 mmol/L (3.5-5.1); TOTAL BILIRUBIN 0.2 mg/dL (<0.1-1.0)
[2020-01-02 20:26] LABS: ABSOLUTE LYMPHOCYTES 0.4 thou/uL (0.8-5.3); ABSOLUTE MONOCYTES 0.1 thou/uL (0.0-1.2); ABSOLUTE NEUTROPHILS 5.9 thou/uL (1.6-8.1); ANISOCYTOSIS Occasional; PLATELET ESTIMATE ADEQUATE
[2020-01-03 00:39] VITALS: BP 119/68
[2020-01-03 04:00] VITALS: BP 98/74
[2020-01-03 05:27] LABS: HEMATOCRIT 29.3 % (37.0-47.0); MCH 32.6 pg (26.0-34.0); MCHC 34.1 g/dL (28.0-37.0); MCV 95.4 fL (80.0-100.0); MPV 8.1 fl. (7.2-11.1); RBC 3.07 mil/uL (4.20-5.00); RDW-CV 15.5 % (10.5-14.5)
[2020-01-03 08:00] VITALS: BP 119/61
[2020-01-03 12:00] VITALS: BP 136/86
[2020-01-03 12:28] LABS: CREATININE 1.1 mg/dL (0.6-1.3); MAGNESIUM 1.7 mg/dL (1.8-2.4)
[2020-01-03 17:30] VITALS: BP 128/69
--- NOTE | 2020-01-03 23:18 | CON ---
[address] [address] CONSULTATION Name: SHIRA CARTER Room: [address] IN ..#: [id number] Admission: 01/03/20 Attend Phys: Emma Guallpa MD Discharge: Date of : 41 Report #: [id number] THIS REPORT FOR: //name// cc: Yonny Dodge Russell J. DO ~ THIS REPORT FOR: //name// CC: Emma Dodge DATE OF SERVICE: 01/03/2020 Consult has been requested by Dr. Brown. INDICATION FOR CONSULTATION: Interstitial lung disease/evaluation, preprocedure for EGD and colonoscopy. HISTORY OF PRESENT ILLNESS: This is a 74-year-old female with past medical history includes a history of interstitial lung disease. It also appears likely to me that the patient has COPD as well; however, I do not have previous PFTs available. The patient follows with Dr. Henriquez in her office has been on oxygen while asleep long-term. More recently, she has also been using oxygen during the daytime; however, is not apparent to me as to whether the patient in fact is desaturating of oxygen while awake. She is not on long-term prednisone. The patient at this time was admitted yesterday primarily due to gastrointestinal complaints. The patient has had diarrhea for the last week. Also, does report recent weight loss. Stools have been black in color, at times has been watery. According to the records, the patient has had these symptoms for 2 weeks and when I asked the patient, she says that she has had these for 1 week. She has had some back and abdominal pain as well. She has had one episode of vomiting. The vomitus is not reported to have contained blood. The patient reports her respiratory complaints to be at baseline, shortness of breath and cough are at baseline. There is no sputum production. There is no chest pain. She says that she was breathing in the room and had chills last night. Otherwise, she has not had any fever or chills either. She has had epistaxis recently, which has now subsided. She does not have swelling of lower extremities. She does not have calf pain. The patient does have some heartburn, which she describes as being at baseline. The patient has had other joint pains as well, which are at baseline. REVIEW OF SYSTEMS: For 12 points is negative except as mentioned above. PAST MEDICAL HISTORY: Interstitial lung disease, previous connective tissue markers are negative. COPD by clinical history. [place] [address] CONSULTATION Name: SHIRA CARTER Room: [address] IN ..#: [id number] Admission: 01/03/20 Attend Phys: Emma Guallpa MD Discharge: Date of : 41 Report #: [id number] recent pulmonary function tests available for my own review. The patient is on oxygen while asleep or nocturnal hypoxemia long-term. Recently has been using oxygen during the day as well, but I am not aware of hypoxemia at baseline while awake. Severe gastroesophageal reflux disease, coronary artery disease, has had coronary stents, obesity, hyperlipidemia, back surgery, lumpectomy, bladder surgery, foot surgery. The patient's last echocardiogram was from 08/2019, which is this year. Left ventricular ejection fraction is 55-60%, pulmonary artery systolic is likely not elevated as there is only trace tricuspid regurgitation in fact is calculated to around 19.7. SOCIAL HISTORY: There is an extensive history of smoking 2 packs a day, discontinued in 2004 or 2005. No known history of heavy alcohol use or illegal drug use. CURRENT MEDICATIONS: List in [employer] reviewed. HOME MEDICATIONS: List in [employer] reviewed. FAMILY HISTORY: Heart disease. ALLERGIES: The patient has had KAMILLE INHIBITOR RELATED COUGH. PHYSICAL EXAMINATION: GENERAL: She is alert, awake and oriented, does not appear to be in any distress. Body mass index is noted to be 24.2. VITAL SIGNS: She has a pulse of 81 and a blood pressure of 119/61. At the time of my examination, the patient's respiratory rate was around 18-19. She is on 3 liters oxygen via nasal cannula, saturating 97%. She has been afebrile since admission. HEENT: Head is normocephalic and atraumatic. Pupils are equal and reactive. There is no throat erythema. NECK: Does not show raised JVP, asymmetry, mass or lymph nodes. CHEST: Symmetrical expansion on inspection and palpation. On auscultation, breath sounds are bilaterally equal but decreased. I do not hear any added sounds. HEART: Regular. There is no murmur. ABDOMEN: Soft and nontender. EXTREMITIES: Lower extremities show no edema and no calf tenderness. SKIN: Dry and intact. NEUROLOGICAL: Moves all extremities bilaterally equally and spontaneously with no focal deficit identified. LABORATORY DATA: The patient's chest x-rays are reviewed and compared to the patient's previous chest x-rays. There are findings consistent with interstitial lung disease. There is a radiopaque density at the right lung base, likely atelectasis. However, considerable chronic changes, I cannot rule [address] [place] [address] CONSULTATION Name: SHIRA CARTER Room: [address] IN [facility]#: [id number] Admission: 01/03/20 Attend Phys: Emma Guallpa MD Discharge: Date of : 43 Report #: [id number] out underlying pneumonia. There is also a radiopaque density at the left lung base. The patient's CBC as well as chemistries are in [facility] and these are reviewed. Mild elevation in creatinine to 1.3 is noted. Note that the patient's baseline creatinine is 0.9. The patient is on normal saline at 100 an hour were ordered by the ER. The labs quoted here are from yesterday. The patient does have significant hyperglycemia with a blood glucose elevated to around 400 yesterday. Glucose this morning is 174. ASSESSMENT AND PLAN: 1. Preprocedure evaluation for EGD and colonoscopy. The patient does have chronic respiratory failure secondary to interstitial lung disease and chronic obstructive pulmonary disease. Respiratory symptoms are close to baseline at this time. This does increase the risk of complications with the upper as well as lower GI scopes. If, however, there is potential significant benefit, then may proceed as planned while understanding higher than average risk. The patient is on Solu-Medrol, which will reduce her risk of complications. I would therefore recommend continuing with Solu-Medrol in the current dose till the procedure is performed after which we will consider tapering off or discontinuing steroids. 2. Chronic respiratory failure, remains on oxygen long time as above. 3. Interstitial lung disease. Connective tissue markers previously negative, possibly fibroblastic inhibitor can be considered would defer to Dr. Henriquez who follows as an outpatient. 4. Chronic obstructive pulmonary disease. No obvious evidence of exacerbation at this time. My clinical impression is that she does have chronic obstructive pulmonary disease. She is on DuoNeb. Also on Solu-Medrol as above. 5. Pulmonary infiltrates/atelectasis. It appears likely to me that the new findings are secondary to atelectasis. I do not see any definite evidence of pneumonia. However, considering chronic changes, it is not possible to state with certainty therefore we will do a CT chest to clarify this. Meanwhile, the patient is noted to be on Levaquin, which I continued for now. If possible, we will obtain a sputum sample. 6. Severe gastroesophageal reflux disease. The patient is on a proton pump inhibitor. The GI service is on the case. 7. History of coronary artery disease, status post stents, normal left ventricular ejection fraction and right heart pressures on the last echo as above. Thanks for this consultation. <ELECTRONICALLY SIGNED> By: Tarun Schmitz MD 01/03/20 2318 1141 [id number] Schmitz MD /nt
[2020-01-04] VITALS: BP 139/74
[2020-01-04 04:00] VITALS: BP 128/64
[2020-01-04 05:06] LABS: ABSOLUTE EOSINOPHILS 0.1 thou/uL (0.0-0.7); ABSOLUTE MONOCYTES 1.3 thou/uL (0.0-1.2); ABSOLUTE NEUTROPHILS 6.5 thou/uL (1.6-8.1); BASOPHILS 0.3 %; EOSINOPHILS 0.7 %; HEMATOCRIT 27.9 % (37.0-47.0); HEMOGLOBIN 9.6 gm/dL (12.0-15.0); LYMPHOCYTES 20.5 %; MCH 32.7 pg (26.0-34.0); MCHC 34.4 g/dL (28.0-37.0); MONOCYTES 12.9 %; MPV 8.1 fl. (7.2-11.1); NUCLEATED RBCS 0 /100WBC; PLATELET COUNT* 297 thou/uL (150-400); POLYS 65.6 %; RBC 2.94 mil/uL (4.20-5.00); RDW-CV 15.9 % (10.5-14.5); WBC 9.9 thou/uL (4.0-11.0)
[2020-01-04 05:24] LABS: ALBUMIN 3.4 g/dL (3.4-5.0); CALCIUM 9.7 mg/dL (8.5-10.1); CREATININE 0.8 mg/dL (0.6-1.3); MAGNESIUM 2.1 mg/dL (1.8-2.4); POTASSIUM 3.7 mmol/L (3.5-5.1); TOTAL BILIRUBIN 0.2 mg/dL (<0.1-1.0)
[2020-01-04 08:00] VITALS: BP 140/77
[2020-01-04 16:36] VITALS: BP 94/70
[2020-01-04 20:30] VITALS: BP 128/64
[2020-01-05 07:30] VITALS: BP 124/79
[2020-01-05 07:55] LABS: HEMATOCRIT 28.4 % (37.0-47.0); HEMOGLOBIN 9.6 gm/dL (12.0-15.0); MCH 32.6 pg (26.0-34.0); MCHC 33.9 g/dL (28.0-37.0); MCV 96.2 fL (80.0-100.0); MPV 7.5 fl. (7.2-11.1); RBC 2.96 mil/uL (4.20-5.00); RDW-CV 15.9 % (10.5-14.5); WBC 9.1 thou/uL (4.0-11.0)
[2020-01-05 08:04] LABS: CALCIUM 9.3 mg/dL (8.5-10.1); CREATININE 0.8 mg/dL (0.6-1.3); POTASSIUM 4.1 mmol/L (3.5-5.1)
[2020-01-05] MEDS ORDERED: IPRAT-ALBUT 0.5-3 ML INH (10:07)
[2020-01-05] MEDS ORDERED: LIDOPATCH1 EACH TOP (10:07)
[2020-01-05] MEDS ORDERED: PREDNISONE 10 M10 MG PO (10:07)
[2020-01-05] MEDS ORDERED: LEVOFLOXACIN500 MG PO (10:07)
[2020-01-05 11:10] VITALS: BP 124/79
[2020-01-05 11:23] VITALS: BP 124/79
[2020-01-05 12:06] VITALS: BP 124/79
--- NOTE | 2020-01-06 07:38 | CON ---
[address] [address] CONSULTATION Name: RAULSHIRA Carleen Room: [address] IN M.R.#: [id number] Admission: 01/03/20 Attend Phys: Emma Guallpa MD Discharge: 01/05/20 Date of : 41 Report #: [id number] THIS REPORT FOR: //name// cc: Yonny Dodge Russell J. DO ~ THIS REPORT FOR: //name// CC: Tarun Dodge DO DATE OF SERVICE: 01/02/2020 REFERRING PHYSICIAN: Emma Guallpa MD REASON FOR CONSULTATION: Chronic diarrhea. IMPRESSION: 1. Chronic diarrhea over the last couple of weeks of uncertain significance. 2. Black stools suggestive of melena versus related to Kaopectate, which the patient has been taking for her diarrhea. 3. Profound weight loss over the last 3 years, likely related to grief reaction. 4. Anorexia with early satiety and poor appetite. 5. Interstitial lung disease with some element of pulmonary fibrosis, which is oxygen dependent. 6. Chronic low back pain with incomplete control on her current medical regimen. 7. Coronary artery disease with remote stents placed in the past. 8. Major depressive disorder. RECOMMENDATIONS: 1. At the present time, the patient is in need mostly of adequate control of her low back pain. I have asked the nursing staff to contact Dr. Guallpa for medication changes to help get her back pain under control. 2. With regards to her diarrhea and weight loss, she needs to undergo both upper and lower endoscopy, but we need to have her seen in consultation by Pulmonary prior to proceeding with the same. She is on 3-4 liters of oxygen and we need to optimize her oxygen status prior to consideration of the same. 3. We will request records from Dr. Modesta Henriquez; her Pulmonary doctor for Dr. Schmitz's review as well. 4. I have discussed those plans with the patient as well as her daughter and they [place] [address] CONSULTATION Name: SHIRA CARTER Room: [address] IN [facility]#: [id number] Admission: 01/03/20 Attend Phys: Emma Guallpa MD Discharge: 01/05/20 Date of : 41 Report #: [id number] HISTORY OF PRESENT ILLNESS: The patient is a very pleasant 74-year-old white female who was admitted to the hospital, mostly because of problem with diarrhea and some black stools. She has had problem with a bad nosebleed back in late November for which she had to come into the hospital and be treated for the same. She has been having some black stools and it is unclear whether it is related to the Kaopectate since she has been taking or if it is GI bleeding. She has not had any black tarry stools, but was having diarrhea. She is not the best of historians. Her daughter relates that she has been having diarrhea without any complaints of any abdominal pain. She has undergone endoscopic studies of her upper and lower GI tract in the past many years ago by Dr. Antonio, without any history of colitis, colon polyps, colon cancer, etc. She has lost close to 100 pounds over the last 3 years after the loss of her and this has been very difficult for her. She denies any dysphagia, odynophagia, but does have problem with not much of an appetite, cannot eat very much. She has had poorly controlled diabetes as well. She just does not feel well. ALLERGIES: KAMILLE INHIBITORS. CURRENT MEDICATIONS: At home include levothyroxine, glimepiride, losartan with hydrochlorothiazide, aspirin, esomeprazole, atorvastatin, metformin, and fish oil. PAST MEDICAL HISTORY: Significant for underlying hypertension, diabetes, coronary artery disease. She has chronic acid reflux, hyperlipidemia. She has had previous back surgery. She has had stents placed in the remote past. She has had bladder surgery, lumpectomy. She has underlying interstitial lung disease, which is on 3-4 liters of oxygen on a regular basis. She has some depression, chronic arthritis as well. SOCIAL HISTORY: The patient does not smoke or drink. FAMILY HISTORY: Negative. PHYSICAL EXAMINATION: GENERAL: Pleasant 74-year-old white female who is very pleasant. CARDIOPULMONARY: Revealed a regular rate and rhythm. LUNGS: Diminished breath sounds with some rhonchi in the left base. ABDOMEN: Soft and nontender. No rebound or guarding noted. LABORATORY DATA: Revealed a white count 9.6, hemoglobin 10.8, platelet count 302,000, MCV is 95.7, RDW 15.4. Sodium 137, potassium 3.8, chloride is 97, bicarbonate 34, BUN is 22, creatinine 1.2 for GFR of only 44. Total bilirubin 0.3, alkaline phosphatase is 68, AST 30, ALT 24, albumin 3.6. Urinalysis unrevealing. [address] [address] CONSULTATION Name: SHIRA CARTER Room: [address] IN .R.#: [id number] Admission: 01/03/20 Attend Phys: Emma Guallpa MD Discharge: 01/05/20 Date of : 41 Report #: [id number] DISCUSSION: At the present time, the patient has had some problem with diarrhea. She also has issues with her lungs. We will proceed with getting Pulmonary on board to see her in consultation and if approved, proceed with upper and lower endoscopy in a 2 to 3 days' time. I have discussed the plans with the patient as well as her daughter and they are agreeable of the same. <ELECTRONICALLY SIGNED> By: Phoenix Brown DO 01/06/20 0738 1842 [id number] Brown DO /nt
--- NOTE | 2020-01-06 16:06 | PATH ---
[address] [address] PATHOLOGY RPT PROCEDURE Name: SHIRA CARTER Room: [address] IN .#: [id number] Admission: 01/03/20 Date of : 41 Discharge: 01/05/20 Report #: [id number] Path Case #: [id number] [facility] Accession Number: [id number] . 01 Material submitted: . PART A: small bowel - SMALL BOWEL BIOPSY FOR CHRONIC DIARRHEA PART B: stomach - ANTRAL BIOPSY FOR H. PYLORI PART C: stomach - ANTRAL BIOPSY FOR POSSIBLE GAVE PART D: colon - RANDOM COLON BIOPSIES FOR CHRONIC DIARRHEA . 01 Clinician provided ICD-10: J15.6 R65.11 . 01 Clinical history: . DIARRHEA, WEAKNESS WITH COPD EXAC/SOA . 02 Diagnosis: A. Small bowel biopsy: - Focal nonspecific active duodenitis, negative for granulomas, viral inclusions, significant intraepithelial lymphocytosis/villous atrophy, and dysplasia. . B. 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 . C. Antral biopsy (for possible GAVE): - Mild chronic antral gastritis typical of reactive gastropathy (chemical gastritis), with minimal/focal vascular ectasia, negative for granulomas, Helicobacter pylori organisms, and dysplasia. . D. Random colon biopsies: - Focal active colitis, negative for granulomas, viral inclusions, and dysplasia. See comment. (JOSEPH:adriana 01/06/2020) [facility] 01/06/2020 1516 Local . 02 Comment: The random colon biopsies (D) shows mostly normal colonic mucosa with one fragment showing active inflammation evidenced by cryptitis and neutrophils in the lamina propria. Ischemic features are not present and there is no significant basal lymphoplasmacytosis or crypt distortion to elevate a concern for Crohn's disease although it cannot be entirely excluded. The histologic differential also includes use of oral sodium phosphate prep, acute self-limited and infections colitis, and use of non-steroidal anti[place] [address] PATHOLOGY RPT PROCEDURE Name: SHIRA CARTER Room: [address] IN M.R.#: [id number] Admission: 01/03/20 Date of : 41 Discharge: 01/05/20 Report #: [id number] Path Case #: [id number] (JOSEPH:[facility] 01/06/2020) . Special stains on B and C: H. pylori immuno . 02 Electronically signed: . Abilio Epstein MD, Pathologist NPI- [id number] . 01 Gross description: . A. The specimen is received in formalin, labeled "Shira Carter, 1 small bowel biopsy" and consists of 4 fragments of pink-alvarez tissue measuring 0.3 x 0.3 cm each which are entirely submitted in A1. . B. The specimen is received in formalin, labeled "Dismang, Shira, 2 antral biopsy" and consists of a fragment of pink-alvarez tissue measuring 0.5 x 0.4 cm which is entirely submitted in B1. . C. The specimen is received in formalin, labeled "Dismang, Shira, 3 antral biopsy" and consists of a fragment of pink-alvarez tissue measuring 0.3 x 0.3 cm which is entirely submitted in C1. . D. The specimen is received in formalin, labeled "Dismang, Shira, 4 random colon biopsies" and consists of multiple fragments of pink-alvarez tissue measuring 1.2 x 0.6 x 0.3 cm in aggregate which are entirely submitted in D1. (SDY; 01/05/2020) SYU/SYU 01/05/2020 1458 Local . 02 Pathologist provided ICD-10: K29.80, K29.50, K52.9 . 02 CPT . 999598, 027313, 420738, 748819, E04024 Specimen Comment: A courtesy copy of this report has been sent to [phone] Specimen Comment: [phone], Specimen Comment: Report sent to ,DR TUBBS / DR THOMAS Performed at: 01 [facility] [address] [place] [address] [address], [place], [place] [id number] MD Yonny Albarado MD Phone: [phone] Performed at: 02 [facility] [address], [place], [place] [id number] MD Abilio Epstein MD Phone: [phone]
== END 2020-01-05 12:07 | disposition home or self-care (01) | DRG 177 ==
LOC: M.ERS 09:05 → M.TBA-ER 11:21 → M.2W 14:38 → M.ORTHSURG 01-04 13:25
PROVIDERS: Internal Medicine Critical Care Medicine; Internal Medicine Gastroenterology; Personal Emergency Response Attendant; ADMIT Internal Medicine; ATTEND Internal Medicine
PROC: 0DBE8ZX Excision of Large Intestine, Via Natural or Artificial Opening Endoscopic, Diagnostic (ICD-10-PCS; principal; 2020-01-04)
PROC: 0D568ZZ Destruction of Stomach, Via Natural or Artificial Opening Endoscopic (ICD-10-PCS; principal; 2020-01-04)
PROC: 0DB68ZX Excision of Stomach, Via Natural or Artificial Opening Endoscopic, Diagnostic (ICD-10-PCS; principal; 2020-01-04)
DX: J15.6 Pneumonia due to other Gram-negative bacteria (principal); R65.11 Systemic inflammatory response syndrome (SIRS) of non-infectious origin with acute organ dysfunction; J96.21 Acute and chronic respiratory failure with hypoxia; K31.811 Angiodysplasia of stomach and duodenum with bleeding; K57.31 Diverticulosis of large intestine without perforation or abscess with bleeding; K25.4 Chronic or unspecified gastric ulcer with hemorrhage; J44.1 Chronic obstructive pulmonary disease with (acute) exacerbation; E87.1 Hypo-osmolality and hyponatremia; J98.11 Atelectasis; J44.0 Chronic obstructive pulmonary disease with (acute) lower respiratory infection; Z20.828 Contact with and (suspected) exposure to other viral communicable diseases; E11.9 Type 2 diabetes mellitus without complications; I25.10 Atherosclerotic heart disease of native coronary artery without angina pectoris; F32.9 Major depressive disorder, single episode, unspecified; K21.9 Gastro-esophageal reflux disease without esophagitis; G89.29 Other chronic pain; M47.9 Spondylosis, unspecified; I10 Essential (primary) hypertension; E78.5 Hyperlipidemia, unspecified; K52.9 Noninfective gastroenteritis and colitis, unspecified; R63.4 Abnormal weight loss; M54.5 Low back pain; K44.9 Diaphragmatic hernia without obstruction or gangrene; K64.4 Residual hemorrhoidal skin tags; Z95.5 Presence of coronary angioplasty implant and graft; I25.2 Old myocardial infarction; Z87.891 Personal history of nicotine dependence; Z23 Encounter for immunization; Z79.899 Other long term (current) drug therapy

== ENCOUNTER 2020-01-30 15:05 | Emergency (ER) | payer OTHER ==
[~2020-01-30] VITALS: Ht 162.6 cm; Wt 59.4 kg
[~2020-01-30 15:05] MED LIST changes: +CHILDREN'S ASPI81 M1 PO; +LEVOFLOXACIN500 MG PO; +LIDOPATCH1 EACH TOP; +NEXIUM40 M2 PO; +NORCO 10-325 T1 EACH PO
[2020-01-30 15:56] LABS: ABSOLUTE EOSINOPHILS 0.7 thou/uL (0.0-0.7); ABSOLUTE LYMPHOCYTES 1.5 thou/uL (0.8-5.3); ABSOLUTE MONOCYTES 0.9 thou/uL (0.0-1.2); ABSOLUTE NEUTROPHILS 9.3 thou/uL (1.6-8.1); BASOPHILS 0.4 %; EOSINOPHILS 5.7 %; HEMATOCRIT 31.5 % (37.0-47.0); HEMOGLOBIN 10.3 gm/dL (12.0-15.0); LYMPHOCYTES 12.2 %; MCH 31.3 pg (26.0-34.0); MCHC 32.7 g/dL (28.0-37.0); MCV 95.9 fL (80.0-100.0); MONOCYTES 7.3 %; MPV 7.1 fl. (7.2-11.1); NUCLEATED RBCS 0 /100WBC; PLATELET COUNT* 315 thou/uL (150-400); POLYS 74.4 %; RBC 3.29 mil/uL (4.20-5.00); RDW-CV 15.5 % (10.5-14.5); WBC 12.6 thou/uL (4.0-11.0)
[2020-01-30 16:04] LABS: CREATININE 1.2 mg/dL (0.6-1.3); POTASSIUM 4.4 mmol/L (3.5-5.1)
[2020-01-30 16:06] LABS: APTT 21.4 Seconds (25.0-31.3)
[2020-01-30 16:15] LABS: ALBUMIN 3.1 g/dL (3.4-5.0); TOTAL BILIRUBIN 0.3 mg/dL (<0.1-1.0); TOTAL PROTEIN 6.8 g/dL (6.4-8.2)
[2020-01-30 17:43] VITALS: BP 138/79
--- NOTE | 2020-01-31 09:34 | EKG ---
[place] [address] ELECTROCARDIOGRAM REPORT Name: SHIRA CARTER Room: [facility]#: [id number] Admission: 01/30/20 Attend Phys: Discharge: 01/30/20 Date of : 41 Date of Service: 01/30/20 1608 Report #: [id number] THIS REPORT FOR: //name// [facility] ED Test Date: 2020-01-30 Test Time: 16:08:40 Pat Name: SHIRA CARTER Department: Room: Gender: Register In Chancery: SAMUEL : 1945 Requested By: La Hinojosa Order Number: [id number] MD: Jim Travis Measurements Intervals [place] Rate: 86 P: 19 [place]: 159 QRS: 23 QRSD: 97 T: 27 QT: 336 QTc: 402 Interpretive Statements Sinus rhythm Ventricular premature complex Abnormal R-wave progression, late transition Inferior infarct, old Compared to ECG 09/22/2019 13:14:51 Ventricular premature complex(es) now present Myocardial infarct finding now present Electronically Signed On 01-31-2020 9:33:49 [employer]ARMACE[employer] SALESPERSON by Jim Travis [email or web address] <ELECTRONICALLY SIGNED> By: Jim Travis MD, FACC 01/31/20 0933 1608 1608 Jim Travis MD, FAC /EPI
== END 2020-01-30 17:44 | disposition home or self-care (01) ==
LOC: M.ERS 15:05
PROVIDERS: Personal Emergency Response Attendant
DX: M54.6 Pain in thoracic spine (principal); Z20.828 Contact with and (suspected) exposure to other viral communicable diseases; R06.00 Dyspnea, unspecified; E11.9 Type 2 diabetes mellitus without complications; K21.9 Gastro-esophageal reflux disease without esophagitis; I10 Essential (primary) hypertension; E78.5 Hyperlipidemia, unspecified; M47.9 Spondylosis, unspecified; I25.10 Atherosclerotic heart disease of native coronary artery without angina pectoris; Z95.5 Presence of coronary angioplasty implant and graft; Z88.8 Allergy status to other drugs, medicaments and biological substances